=== PATIENT | female | born 1995 | race Hispanic/Latino ===

== ENCOUNTER 2024-03-20 20:51 | Emergency (ER) | payer OTHER ==
[~2024-03-20] VITALS: Ht 167.6 cm; Wt 88.2 kg
[2024-03-20 21:05] VITALS: BP 148/96; TEMP 97.7; O2SAT 100
[2024-03-21] MEDS ORDERED: CEPH500C PO (02:14)
[2024-03-21] MEDS ORDERED: NAPR-1405 PO (02:14)
[2024-03-21] MEDS: NAPROXEN 250 MG TAB PO ONE (02:20)
[2024-03-21] MEDS: CEPHALEXIN 500 MG CAP PO ONE (02:20)
== END 2024-03-21 02:43 | disposition home or self-care (01) ==
LOC: M ED 20:51
DX: H00.011 Hordeolum externum right upper eyelid (principal); L02.213 Cutaneous abscess of chest wall; Z79.2 Long term (current) use of antibiotics; Z79.899 Other long term (current) drug therapy

== ENCOUNTER → 2024-03-25 | Outpatient (CLI) | payer OTHER ==
[~2024-03-25] MED LIST: CEPH500C PO; NAPR-1405 PO
== END ==
LOC: M PLAIMG 06:57 → EDUNIT# 07:30
PROVIDERS: ATTEND Internal Medicine
DX: M25.511 Pain in right shoulder (principal)